=== PATIENT | male | born 1980 | race African-American/Black ===

== ENCOUNTER 2018-05-27 10:46 | Inpatient (IN) | payer SELFPAY ==
[2018-05-27 12:45] LABS: #Eosinphils 0.4 thou/uL (0.0-0.7); #Lymphocytes 1.5 thou/uL (1.20-3.40); #Monocytes 0.3 thou/uL (0.11-0.59); #Neutrophils 1.9 thou/uL (1.40-6.50); %Basophils 0.5 % (0.0-1.0); %Eosinophils 8.7 % (0.0-10.0); %Lymphocytes 35.9 % (21.0-51.0); %Monocytes 7.3 % (0.0-10.0); %Neutrophils 47.5 % (42.0-75.0); Hemoglobin 12.5 g/dL (14.0-18.0); Mean Corpuscular HGB CONC 31.8 g/dL (32.0-36.0); Mean Corpuscular Hemoglobin 26.6 pg (27.0-31.0); Mean Corpuscular Volume 83.4 fL (78.0-98.0); Mean Platelet Volume 8.3 fL (7.4-10.4); Platelet Count 177 thou/uL (130-400); RBC Distribution Width 13.6 % (11.5-14.5); Red Blood Cell (RBC) Count 4.69 mill/uL (4.70-6.10); White Blood Cell (WBC) Count 4.1 thou/uL (4.8-10.8)
[2018-05-27] MEDS ORDERED: diphenhydrAMINE 50 MG/ML VIAL ONE (12:49)
[2018-05-27] MEDS ORDERED: Ketorolac Tromethamine 30 MG/ML VIAL ONE (12:49)
[2018-05-27] MEDS ORDERED: Metoclopramide HCl 10 MG/2 ML VIAL ONE (12:49)
[2018-05-27 13:06] LABS: ALT (SGPT) 20 U/L (8-55); AST (SGOT) 17 U/L (5-34); Albumin 3.3 g/dL (3.5-5.0); Alkaline Phosphatase 71 U/L (40-150); Anion Gap 12 mmol/L (10-20); BUN (Urea Nitrogen) 41 mg/dL (8.9-20.6); Bilirubin, Total 0.2 mg/dL (0.2-1.2); Calc. Creatinine Clearance 0 mL/min (70-130); Calcium 8.5 mg/dL (7.8-10.44); Carbon Dioxide 20 mmol/L (22-29); Chloride 108 mmol/L (98-107); Estimated GFR-MDRD 12; Globulin 3.9 g/dL (2.4-3.5); Glucose 97 mg/dL (70-105); Potassium 3.4 mmol/L (3.5-5.1); Protein, Total 7.2 g/dL (6.0-8.3); Sodium 137 mmol/L (136-145)
[2018-05-27 13:47] LABS: Acetaminophen Less than 6.0 mcg/mL (10.0-30.0); Alcohol Less than 10 mg/dL (Less than 10); Salicylate Less than 8.0 mg/dL (15.0-30.0)
[2018-05-27 16:19] LABS: Bilirubin Negative (Negative); Blood, Urine Small (Negative); Clarity CLEAR (Clear); Glucose, Urine (Dipstick) Negative (Negative); Leukocyte Trace (Negative); Nitrite Negative (Negative); Protein, Urine (Dipstick) 100 mg/dL (Neg-Trace); Specific Gravity, Urine 1.012 (1.002-1.036); Urobilinogen 0.2 mg/dL (0.2-1.0)
[2018-05-27 16:21] LABS: Bacteria/HPF None Seen HPF (None Seen); Pathc Cast-AUWi Flag 1.63 (0-2.49)
[2018-05-27 16:31] LABS: Amphetamine Not Detected (NotDetected); Barbiturates Screen Not Detected (NotDetected); Benzodiazepine Screen Not Detected (NotDetected); Cocaine Metabolite Screen Not Detected (NotDetected); Medtox Control Line Valid? VALID (VALID); Medtox Reader # READER 1; Methadone Not Detected (NotDetected); Methamphetamine Not Detected (NotDetected); Opiate Screen Not Detected (NotDetected); Oxycodone Screen Not Detected (NotDetected); Phencyclidine (PCP) Not Detected (NotDetected); THC/Cannabinoid Screen Not Detected (NotDetected); Tricyclic Screen Not Detected (NotDetected)
[2018-05-27 16:36] LABS: Hyaline Casts/LPF 0-3 HYALINE CAST LPF (0-3 Hyaline); Renal Epithelial None Seen HPF (0-3); Transitional Epithelial NONE SEEN HPF (0-3)
[2018-05-27] MEDS ORDERED: Senokot S 8.6-50 MG TAB PO PRN (17:28)
[2018-05-27] MEDS: Potassium Chloride 20 MEQ in Lactated Ringer's 1,000 ML IV SCH (18:33)
[2018-05-27 19:05] VITALS: BMI 40.1
--- NOTE | 2018-05-27 19:25 | ULT ---
BILATERAL RENAL ULTRASOUND: 05/27/18 HISTORY: Acute renal insufficiency. FINDINGS: The right kidney measures 13.1 cm in length and the left kidney measures 11.9 cm in length. No focal mass or hydronephrosis seen on either side. Cortical echogenicity and thickness is normal. No shadowi ng calculi are identified. The urinary bladder is unremarkable. IMPRESSION: Normal exam. POS: [facility]
--- NOTE | 2018-05-28 01:34 | CON ---
DATE OF CONSULTATION: 05/27/2018 CONSULTING PHYSICIAN: Alejo Brandon MD REASON FOR CONSULTATION: Acute kidney injury. IMPRESSION: Acute kidney injury, query cause. 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 PLAN: 1. Renal ultrasound to evaluate the degree of chronicity versus acuity of this condition. 2. I do agree with gentle rehydration. 3. Renally dose all medications and avoid potentially nephrotoxic agents. 4. The patient counseled on the need to stay away from nonsteroidal anti-inflammatory drugs and quit tobacco use. 5. Evaluate the urine for any potential significant proteinuria. 6. PTH to be checked. 7. Hopefully, renal function will begin to improve, otherwise we will escalate the investigation up to renal biopsy if the ultrasound shows normal echogenicity and size of the kidney and the renal function is not improving with current conservative measures. HISTORY OF PRESENT ILLNESS: A 38-year-old gentleman with unremarkable past medical history, who presented here complaining of left-sided headache with intolerance and two episodes of vomiting. The patient on presentation, however, noted with a creatinine above 6 and as a result, renal consultation was placed. The patient denies any hematuria or frothy urine. No any significant change in his appetite. No urinary output. PAST MEDICAL HISTORY: Pretty much unremarkable. FAMILY HISTORY: Significant for grandmother who has some kidney problem, otherwise unremarkable. SOCIAL HISTORY: Occasional substance use, but noninjected. Tobacco use on and off about two packs a week. Alcohol not significant. The patient works . REVIEW OF SYSTEMS: As documented in the body of the history. All other systems were reviewed and found not to be significantly related to present illness. LABORATORY INVESTIGATION: Significant for the following; hemoglobin 12.5. Chemistry showed a creatinine of 6.38, BUN of 41, potassium 3.4, and bicarb of 20. Urine shows evidence of proteinuria and trace blood. PHYSICAL EXAMINATION: GENERAL: The patient was found not to be in any obvious distress. VITAL SIGNS: Noted with the following vital signs; afebrile, temperature 97.8, pulse 64, respiratory rate of 16, O2 saturation 98%, and blood pressure 124/76. HEENT: Unremarkable. Moist oral mucosa. No conjunctival injection or icterus. NECK: Supple. CARDIOVASCULAR SYSTEM: First and second heart sounds were heard. RESPIRATORY SYSTEM: Clear to auscultation. DIGESTIVE: Revealed a benign abdomen. Positive bowel sounds. EXTREMITIES: No peripheral edema. SKIN: No new gross rash. LYMPHATICS: No peripheral lymphadenopathy. SUMMARY: A 38-year-old gentleman who presented here with headache and incidentally noted to have severe acute kidney injury versus chronic kidney disease. Thank you for this consultation. We will follow with you. Job ID: [id number]
[2018-05-28] MEDS: Potassium Chloride 20 MEQ in Lactated Ringer's 1,000 ML IV SCH (02:38)
[2018-05-28] MEDS: HYDROcodone/Acetaminophen 5/325 mg Tablet PO PRN (03:17)
--- NOTE | 2018-05-28 03:23 | HP ---
PRIMARY CARE PHYSICIAN: None. CHIEF COMPLAINT: Headache. HISTORY OF PRESENT ILLNESS: Mr. Soriano is a 38-year-old man who reported to the emergency room today complaining of a frontal headache. Reports that he has had headaches since Friday, was seen in the emergency room at [facility] on Friday, was given some medications, reports some mild relief from that, but he did go home and he is at that point, sometime on Friday, it did resolve. Reports that today it came back and he had some associated nausea with a mild cough. Denied any fever, vomiting, rhinorrhea, or nasal congestion. Denies history of migraines. The patient was given 2 L of fluid, headache cocktail including Reglan, Benadryl, and Toradol. Reports that his headache is much better. Routine labs were conducted and at that point, they realized that his creatinine was 6.38 without a history of any sort of renal issues. The patient does report that his grandmother does have renal issues and that he is currently hospitalized, but denies any medical history from either parents or any siblings. 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 He said it was worse in 2017. Reports that he doubled 2-3 times in 2018. Last dose of methamphetamine that he took was about three weeks ago. Denies any other recent changes to his health. Denies any new medications. Does report that he has been taking Motrin 800 mg to 1200 mg a day since last Friday, but other than that, he takes no medications. The patient will be subsequently admitted for further evaluation of acute renal failure and we will consult Nephrology for further recommendations. PAST MEDICAL HISTORY: None. PAST SURGICAL HISTORY: None. PSYCHIATRIC HISTORY: None. SOCIAL HISTORY: Does report drinking socially 2 or 3 times a month. He is a former drug user, although he says that he last used 2-3 weeks ago, methamphetamines primarily. Does smoke about a half a pack of cigarettes a day and has since he was 30. He lives with his cousin in [place]. REVIEW OF SYSTEMS: The patient denies any fevers or chills. Does have a mild cough. Denies any abdominal pain or back pain. Does report some nausea. Denies any vomiting. Denies any dysuria, hematuria, hesitancy, any change to his urine stream or volume. Reports that he has had a headache since last Dwaine, but reports that it is much better currently. All other systems are reviewed and negative unless mentioned in the HPI. PHYSICAL EXAMINATION: VITAL SIGNS: Temperature is 97.9, pulse is 69, respirations are 20, PO2 saturations are 98% on room air, blood pressure is 118/78. CONSTITUTIONAL: The patient appears in no distress, but appears pain-free. HEENT: Head is atraumatic and normocephalic. There is no temporal artery tenderness. Eyes; eyelids are normal to inspection. Pupils are equally round and reactive to light. Extraocular muscles are intact. ENT; mucous membranes are moist. Mouth exam is normal. NECK: Normal range of motion. Trachea is midline. RESPIRATORY/CHEST: Breath sounds are clear. No findings of any respiratory distress. CARDIOVASCULAR: Regular rate and rhythm. Heart sounds are normal. ABDOMEN: Soft, nontender. Bowel sounds are heard. BACK: Back exam is normal. Normal inspection. No tenderness. EXTREMITIES: Upper extremity, normal inspection. Normal range of motion. Radial pulses equal bilaterally. Lower extremity, normal range of motion. Inspection is normal. Pedal pulses equal bilaterally. No edema is noted. NEURO: The patient is oriented to person, place, and time. Speech is normal. SKIN: Warm, dry, normal in color. PSYCH: The patient has a normal affect. PERTINENT LABORATORY DATA: White blood cell count is 4.1, hemoglobin is 12.5, hematocrit is 39.2, and platelet count is 177. Chemistry; sodium is 137, potassium is 3.4, BUN is 41, creatinine is 6.38, estimated GFR is 12, glucose is 97, calcium is 8.5. Liver enzymes are unremarkable. Urine positive for protein, little bit of blood, trace leukocyte esterase, white blood cell count 7 to 10, 4 to 6 squamous, no bacteria is seen. Random protein urine is 80. Urine creatinine is 136.04. Salicylates less than 8. Tylenol less than 6. Plasma alcohol less than 10. Otherwise, urine drug screen is negative. ASSESSMENT AND PLAN: 1. Intravenous hydration. We have added a little potassium to his IV fluids with mild hypokalemia at 3.4. We will ask Dr. Dhillon to consult and will await his recommendations. We will recheck labs in the morning. 2. Gastrointestinal and deep venous thrombosis prophylaxis will be started. 3. The patient is a full code. 4. No known drug allergies. 5. Home medications none. 6. Hospital course will be dependent on clinical findings. Job ID: [id number]
[2018-05-28 06:14] LABS: #Eosinphils 0.3 thou/uL (0.0-0.7); #Lymphocytes 1.6 thou/uL (1.20-3.40); #Monocytes 0.3 thou/uL (0.11-0.59); #Neutrophils 2.4 thou/uL (1.40-6.50); %Basophils 0.6 % (0.0-1.0); %Eosinophils 7.1 % (0.0-10.0); %Lymphocytes 34.6 % (21.0-51.0); %Monocytes 5.6 % (0.0-10.0); Hemoglobin 10.8 g/dL (14.0-18.0); Mean Corpuscular HGB CONC 31.4 g/dL (32.0-36.0); Mean Corpuscular Hemoglobin 26.3 pg (27.0-31.0); Mean Corpuscular Volume 83.7 fL (78.0-98.0); Platelet Count 193 thou/uL (130-400); RBC Distribution Width 13.6 % (11.5-14.5); Red Blood Cell (RBC) Count 4.11 mill/uL (4.70-6.10); White Blood Cell (WBC) Count 4.6 thou/uL (4.8-10.8)
[2018-05-28 06:34] LABS: Albumin 2.7 g/dL (3.5-5.0); Anion Gap 13 mmol/L (10-20); BUN (Urea Nitrogen) 37 mg/dL (8.9-20.6); BUN/Creatinine Ratio 7.09; Calc. Creatinine Clearance 31 mL/min (70-130); Calcium 7.8 mg/dL (7.8-10.44); Carbon Dioxide 17 mmol/L (22-29); Chloride 110 mmol/L (98-107); Estimated GFR-MDRD 15; Glucose 87 mg/dL (70-105); Phosphorus 2.6 mg/dL (2.3-4.7); Potassium 3.7 mmol/L (3.5-5.1); Sodium 136 mmol/L (136-145)
[2018-05-28] MEDS: Famotidine 20 MG TAB PO SCH (08:06)
[2018-05-28] MEDS: Acetaminophen 325 MG TAB PO PRN ×2 (08:22→20:36)
--- NOTE | 2018-05-28 15:23 | PRG ---
DATE OF SERVICE: 05/28/2018 SUBJECTIVE: Mr. Soriano is a 38-year-old male with no known past medical history, who has been admitted with acute kidney injury. The patient was originally seen at [facility] with complaints of headache. He was given Phenergan, IV fluid, and Toradol with relief of his headache, however, creatinine was noted to be significantly elevated at 6.38, and he has been admitted for further workup and treatment. The patient is being seen in consultation with Dr. Dhillon. The patient feels well this afternoon. He denies any headache at this time. He denies any chest pain, shortness of breath, or palpitations. His appetite is good. He has no diarrhea. He reports that he is urinating frequently since IV fluids were started. OBJECTIVE: VITAL SIGNS: Blood pressure is 130/87, pulse is 72, respirations are 17, and O2 sat is 98% on room air. GENERAL: The patient is a mildly obese male, healthy appearing , in no acute distress. HEENT: Head; atraumatic, normocephalic. Mucous membranes are moist. Extraocular movements are intact. NECK: Supple. No lymphadenopathy. No carotid bruits. Trachea is midline. CARDIOVASCULAR: S1 and S2. Regular rate and rhythm. No appreciable murmurs, rubs, or gallops. LUNGS: Regular respiratory rate and pattern. Clear to auscultation bilaterally. No rhonchi, wheezes, or crackles noted. ABDOMEN: Soft. Positive bowel sounds throughout. Nontender. SKIN: No rashes. Warm and dry. No discoloration. EXTREMITIES: +2 DP pulses bilaterally. No edema. LABORATORY DATA: White blood cell count 4.6, hemoglobin 10.8, hematocrit 34.4, and platelet count is 193. Sodium is 136, potassium 3.7, chloride 110, carbon dioxide 17, BUN 37, and creatinine 5.22. PTH 208. ASSESSMENT: 1. Acute kidney injury, presumed secondary to NSAID use. At this time, creatinine trending down from 6.38 to 5.22. IV fluids. 2. Secondary hyperparathyroidism and mild anemia secondary to above. 3. Headache at presentation, now resolved. PLAN: We will continue IV fluids in the hopes that his creatinine continues to trend down and his kidney function improves. His renal ultrasound was negative , and renal biopsy is being considered if creatinine does not continue to improve. Continue IV fluids per Dr. Dhillon. We will use p.r.n. Tylenol for headache if it were to return. Avoid nephrotoxins. Further recommendations based on hospital course. Job ID: [id number] [email or web address]
[2018-05-28 18:49] LABS: Anion Gap 12 mmol/L (10-20); BUN (Urea Nitrogen) 33 mg/dL (8.9-20.6); Calc. Creatinine Clearance 36 mL/min (70-130); Carbon Dioxide 22 mmol/L (22-29); Chloride 109 mmol/L (98-107); Estimated GFR-MDRD 18; Glucose 92 mg/dL (70-105); Potassium 3.7 mmol/L (3.5-5.1); Sodium 139 mmol/L (136-145)
--- NOTE | 2018-05-28 19:14 | PRG ---
DATE OF SERVICE: 05/28/2018 SUBJECTIVE: The patient is seen and examined with no new complaints. Hemodynamically stable. OBJECTIVE: HEENT: Unremarkable. CARDIOVASCULAR SYSTEM: First and second heart sounds were heard. RESPIRATORY SYSTEM: Clear to auscultation. DIGESTIVE SYSTEM: Revealed a benign abdomen with positive bowel sounds. EXTREMITIES: No peripheral edema. SKIN: No new gross rash. LYMPHATICS: No peripheral lymphadenopathy. LABORATORY INVESTIGATION: Significant for hemoglobin of 10.8. Chemistry showed a creatinine down to 5.22, BUN of 37, bicarb of 17. PTH of 208 and albumin 2.7. Urinalysis reveals some nephrotic proteinuria. IMPRESSION: 1. 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 2. Metabolic acidosis, partly due to re-expansion acidosis. 3. Mild secondary hyperparathyroidism. PLAN: 1. Discontinue current IV fluid and place this patient in a bicarb-based infusion. However, given the cellular shifting of potassium with correction of metabolic acidosis, we will go ahead and supplement this patient with potassium as well. 2. Re-evaluate the renal function around 6 p.m. 3. Further management to be dependent on the clinical course. Please avoid potentially nephrotoxic agents and renally dose all medications. Hopefully, renal function will improve. Job ID: [id number]
[2018-05-29] MEDS: HYDROcodone/Acetaminophen 5/325 mg Tablet PO PRN (02:53)
[2018-05-29] MEDS: Acetaminophen 325 MG TAB PO PRN ×2 (06:01→12:15)
[2018-05-29 06:46] LABS: #Eosinphils 0.4 thou/uL (0.0-0.7); #Lymphocytes 1.4 thou/uL (1.20-3.40); #Monocytes 0.3 thou/uL (0.11-0.59); #Neutrophils 1.8 thou/uL (1.40-6.50); %Basophils 0.5 % (0.0-1.0); %Eosinophils 10.2 % (0.0-10.0); %Lymphocytes 36.3 % (21.0-51.0); %Monocytes 7.2 % (0.0-10.0); %Neutrophils 45.9 % (42.0-75.0); Hemoglobin 10.9 g/dL (14.0-18.0); Mean Corpuscular HGB CONC 32.6 g/dL (32.0-36.0); Mean Corpuscular Hemoglobin 26.7 pg (27.0-31.0); Mean Corpuscular Volume 81.9 fL (78.0-98.0); Mean Platelet Volume 7.8 fL (7.4-10.4); Platelet Count 225 thou/uL (130-400); RBC Distribution Width 13.5 % (11.5-14.5); Red Blood Cell (RBC) Count 4.09 mill/uL (4.70-6.10); White Blood Cell (WBC) Count 3.9 thou/uL (4.8-10.8)
[2018-05-29 07:05] LABS: Anion Gap 13 mmol/L (10-20); BUN (Urea Nitrogen) 27 mg/dL (8.9-20.6); Calc. Creatinine Clearance 42 mL/min (70-130); Calcium 7.8 mg/dL (7.8-10.44); Carbon Dioxide 22 mmol/L (22-29); Chloride 108 mmol/L (98-107); Estimated GFR-MDRD 21; Glucose 95 mg/dL (70-105); Potassium 3.9 mmol/L (3.5-5.1); Sodium 139 mmol/L (136-145)
[2018-05-29] MEDS: Famotidine 20 MG TAB PO SCH (09:03)
--- NOTE | 2018-05-29 10:43 | PDOC.PN ---
- Subjective Encounter Start Date: 05/29/18 Encounter Start Time: 10:41 Patient seen and examined, no new issues or complaints, all questions answered. - Objective Resuscitation Status - Order Detail: 05/27/18 17:23 Resuscitation Status Routine Co-Sign Provider: Resuscitation Status: FULL: Full Resuscitation Discussed with: patient Additional comments: His aunt Zuleyma will be his surrogate decision maker. He is getting her number for us. Vital Signs & Weight: Vital Signs (12 hours) Temp Pulse Resp BP Pulse Ox 05/29/18 09:07 96 05/29/18 07:14 98.2 F 58 L 16 118/75 96 05/29/18 05:39 98.4 F 78 16 130/82 99 05/29/18 00:30 97.6 F 78 16 122/79 99 Weight Weight 249 lb 1.957 oz I&O: 05/28/18 05/29/18 05/30/18 06:59 06:59 06:59 Intake Total 2100 4850 Output Total 100 Balance 2000 4850 Result Diagrams: 05/29/18 06:20 05/29/18 06:20 Phys Exam - Physical Examination Constitutional: NAD HEENT: PERRLA, moist MMs, sclera anicteric Neck: no nodes, no JVD, supple Respiratory: no wheezing, no rales, no rhonchi Cardiovascular: RRR, no significant murmur, no rub Gastrointestinal: soft, non-tender, no distention Musculoskeletal: pulses present, edema present (trace) Dx/Plan (1) Acute kidney injury Code(s): N17.9 - ACUTE KIDNEY FAILURE, UNSPECIFIED Status: Acute (2) Hypertension Code(s): I10 - ESSENTIAL (PRIMARY) HYPERTENSION Status: Acute - Plan * repeat labs in AM * if Cr continues to impove will likely DC in 24-48hrs * renal following * cont current plan of care * case and plan d/w patient at length, he understood and agreed with this plan.
--- NOTE | 2018-05-29 17:55 | PRG ---
DATE OF SERVICE: 05/29/2018 SUBJECTIVE: The patient is seen and examined, seems to be doing much better. Noted with the following vital signs. OBJECTIVE: VITAL SIGNS: Afebrile, temperature 98.2, pulse 58, respiratory rate of 16, O2 saturations 96% with blood pressure 118/75. HEENT: Unremarkable. CARDIOVASCULAR SYSTEM: First and second heart sounds were heard. RESPIRATORY SYSTEM: Clear to auscultation. DIGESTIVE: Revealed a benign abdomen with positive bowel sounds. EXTREMITIES: No peripheral edema. SKIN: No new gross rash. LYMPHATICS: No peripheral lymphadenopathy. LABORATORY INVESTIGATION: Showed a sodium of 139, BUN of 27, creatinine 3.87, and bicarb of 22. IMPRESSION: 1. Acute kidney injury, which seems to be responding to conservative renal supportive measures. 2. Metabolic acidosis, resolved. PLAN: 1. I counseled the patient extensively on the need to avoid nonsteroidal anti-inflammatory drugs. 2. Discontinue IV fluids. 3. Further management to be dependent on the clinical course. From the renal standpoint, the patient is good for discharge with a plan to follow up with me within the next 4 weeks. Job ID: [id number]
[2018-05-30] MEDS: HYDROcodone/Acetaminophen 5/325 mg Tablet PO PRN (03:26)
[2018-05-30 06:32] LABS: #Basophils 0.1 thou/uL (0.0-0.2); #Eosinphils 0.4 thou/uL (0.0-0.7); #Lymphocytes 1.8 thou/uL (1.20-3.40); #Monocytes 0.3 thou/uL (0.11-0.59); #Neutrophils 2.2 thou/uL (1.40-6.50); %Basophils 1.5 % (0.0-1.0); %Eosinophils 7.8 % (0.0-10.0); %Lymphocytes 37.4 % (21.0-51.0); %Monocytes 7.2 % (0.0-10.0); %Neutrophils 46.2 % (42.0-75.0); Hemoglobin 10.8 g/dL (14.0-18.0); Mean Corpuscular HGB CONC 32.7 g/dL (32.0-36.0); Mean Corpuscular Hemoglobin 27.3 pg (27.0-31.0); Mean Corpuscular Volume 83.5 fL (78.0-98.0); Platelet Count 219 thou/uL (130-400); RBC Distribution Width 13.3 % (11.5-14.5); Red Blood Cell (RBC) Count 3.95 mill/uL (4.70-6.10); White Blood Cell (WBC) Count 4.7 thou/uL (4.8-10.8)
[2018-05-30 06:51] LABS: Anion Gap 11 mmol/L (10-20); BUN (Urea Nitrogen) 21 mg/dL (8.9-20.6); Calc. Creatinine Clearance 57 mL/min (70-130); Carbon Dioxide 26 mmol/L (22-29); Chloride 106 mmol/L (98-107); Estimated GFR-MDRD 30; Glucose 84 mg/dL (70-105); Potassium 3.8 mmol/L (3.5-5.1); Sodium 139 mmol/L (136-145)
[2018-05-30] MEDS: Famotidine 20 MG TAB PO SCH (08:58)
--- NOTE | 2018-05-30 11:51 | PDOC.EVN ---
Event Note - Event Note Event Note: [facility] #[id number]
[2018-05-30 12:42] VITALS: BP 139/80; TEMP 98.2
--- NOTE | 2018-05-31 03:25 | DIS ---
DATE OF ADMISSION: 05/27/2018 DATE OF DISCHARGE: 05/30/2018 ADMITTING DIAGNOSES: Acute kidney injury, nausea, vomiting, and electrolyte abnormality. DISCHARGE DIAGNOSES: Acute kidney injury secondary to NSAID nephropathy. Fluid, electrolyte abnormality, nausea, vomiting, resolved. HOSPITAL COURSE: This is a 38-year-old male admitted to the hospital with a creatinine that started up around 6 and changed. Found to have MADELINE, seen by Internal Medicine and Nephrology. Patient admitted to having taken ibuprofen consistently for a while. The patient was admitted to the internal Medicine Team, started on IV fluids and stabilized. Creatinine at point in time of discharge had come down to 2.86, at its highest was 6.4, baseline is around 0.85, checked two years ago. The patient upon time of discharge was stable. Denied any nausea, vomiting, diarrhea, constipation, chest pain, fevers, or shortness of breath, and was advised not to take any more ibuprofen. FOLLOWUP: Follow up with PCP within 1 month for further repeat blood work and evaluation of MADELINE. Patient at the time of discharge was stable. Case and plan discussed with patient at length. He understood and agreed with the plan. DISPOSITION: Home. FOLLOW UP: With PCP within 1 month. MEDICATIONS: See MAR. ACTIVITY: As tolerated with assistance as needed. DIET: Low-fat, low-calorie, high-fiber diet. CONDITION: Stable. PROGNOSIS: Good. Case and plan again discussed with the patient at length. He understood and agreed with this plan. Job ID: [id number]
== END 2018-05-30 12:51 | disposition home or self-care (01) | DRG 683 ==
LOC: ERS 10:46 → T4-B 17:15
PROVIDERS: ADMIT Internal Medicine; ATTEND Internal Medicine
DX: N17.9 Acute kidney failure, unspecified (principal); E87.2 Acidosis; E87.6 Hypokalemia; N25.81 Secondary hyperparathyroidism of renal origin; R51 Headache; I10 Essential (primary) hypertension
CPT/HCPCS: 36415; 36416; 76770; 80048; 80053; 80069; 80306; 80307; 81003; 81015; 82570; 83970; 84156; 85025; 85652; 96361; 96365; 96375; J1200; J1885; J2765; J3480; J7070; J7120

== ENCOUNTER 2020-06-01 17:04 | Emergency (ER) | payer SELFPAY ==
[2020-06-01 18:17] LABS: #Eosinphils 0.5 thou/uL (0.0-0.7); #Lymphocytes 1.2 thou/uL (1.20-3.40); #Monocytes 0.4 thou/uL (0.11-0.59); #Neutrophils 2.3 thou/uL (1.40-6.50); %Basophils 0.5 % (0.0-1.0); %Lymphocytes 27.6 % (21.0-51.0); %Neutrophils 51.9 % (42.0-75.0); Hemoglobin 12.5 g/dL (14.0-18.0); Mean Corpuscular HGB CONC 31.8 g/dL (32.0-36.0); Mean Corpuscular Hemoglobin 27.7 pg (27.0-31.0); Mean Corpuscular Volume 87.1 fL (78.0-98.0); Mean Platelet Volume 8.4 fL (7.4-10.4); Platelet Count 183 thou/uL (130-400); RBC Distribution Width 13.2 % (11.5-14.5); White Blood Cell (WBC) Count 4.5 thou/uL (4.8-10.8)
[2020-06-01 18:21] LABS: Bacteria/HPF None Seen HPF (None Seen); Bilirubin Negative (Negative); Blood, Urine Negative (Negative); Clarity Clear (Clear); Glucose, Urine (Dipstick) Normal (Negative); Ketone, Urine Negative (Negative); Leukocyte Negative Leu/uL (Negative); Nitrite Negative (Negative); Protein, Urine (Dipstick) 30 mg/dL (Neg-Trace); RBC/HPF 0-3 HPF (0-3); Squamous Epithelial 0-3 HPF (0-3); Urobilinogen Normal mg/dL (Less than 2); WBC/HPF 0-3 HPF (0-3)
[2020-06-01 18:38] LABS: ALT (SGPT) 18 U/L (8-55); AST (SGOT) 19 U/L (5-34); Albumin 3.9 g/dL (3.5-5.0); Alkaline Phosphatase 92 U/L (40-110); Anion Gap 12 mmol/L (10-20); BUN (Urea Nitrogen) 10 mg/dL (8.9-20.6); Bilirubin, Total 0.4 mg/dL (0.2-1.2); Calc. Creatinine Clearance 0 mL/min (70-130); Calcium 9.3 mg/dL (7.8-10.44); Carbon Dioxide 26 mmol/L (22-29); Chloride 105 mmol/L (98-107); Globulin 3.6 g/dL (2.4-3.5); Glucose 88 mg/dL (70-105); Potassium 3.2 mmol/L (3.5-5.1); Protein, Total 7.5 g/dL (6.0-8.3); Sodium 140 mmol/L (136-145)
== END 2020-06-01 19:25 | disposition home or self-care (01) ==
LOC: ERS 17:04
DX: M54.5 Low back pain (principal); D64.9 Anemia, unspecified; F17.210 Nicotine dependence, cigarettes, uncomplicated; X50.0XXA Overexertion from strenuous movement or load, initial encounter
CPT/HCPCS: 36415; 80053; 81003; 81015; 85025; 99283

== ENCOUNTER 2022-05-26 20:34 | Emergency (ER) | payer SELFPAY ==
[2022-05-26] MEDS ORDERED: HYDROcodone/Acetaminophen 10/325 mg Tablet ONE (21:52)
[2022-05-26] MEDS ORDERED: Ketorolac Tromethamine 30 MG/ML VIAL ONE (21:52)
== END 2022-05-26 22:08 | disposition home or self-care (01) ==
LOC: ERS 20:34
DX: S82.031A Displaced transverse fracture of right patella, initial encounter for closed fracture (principal); W18.30XA Fall on same level, unspecified, initial encounter
CPT/HCPCS: 96372; J1885

== ENCOUNTER 2022-06-30 17:14 | Emergency (ER) | payer OTHER, SELFPAY ==
[2022-06-30] MEDS ORDERED: Morphine 10 MG/ML VIAL ONE (17:48)
== END 2022-06-30 18:33 | disposition home or self-care (01) ==
LOC: ERS 17:14
DX: S82.031A Displaced transverse fracture of right patella, initial encounter for closed fracture (principal); W01.0XXA Fall on same level from slipping, tripping and stumbling without subsequent striking against object, initial encounter
CPT/HCPCS: 96372; J2270